=== PATIENT | male | born 1995 | race Caucasian/White ===

== ENCOUNTER 2017-07-06 12:30 | Emergency (ER) | payer OTHER ==
[2017-07-06 12:54] VITALS: BP 142/78
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
== END 2017-07-06 14:15 | disposition home or self-care (01) ==
LOC: UCEAST 12:30
DX: S16.1XXA Strain of muscle, fascia and tendon at neck level, initial encounter (principal); S46.912A Strain of unspecified muscle, fascia and tendon at shoulder and upper arm level, left arm, initial encounter; V49.9XXA Car occupant (driver) (passenger) injured in unspecified traffic accident, initial encounter; Y92.410 Unspecified street and highway as the place of occurrence of the external cause; Y92.9 Unspecified place or not applicable
CPT/HCPCS: 72050; 99211; G0463